=== PATIENT | male | born 1970 | race Caucasian/White ===

== ENCOUNTER 2019-11-01 05:26 | Emergency (ER) | payer OTHER ==
[~2019-11-01] VITALS: Ht 172.7 cm; Wt 79.4 kg
[2019-11-01] MEDS ORDERED: COMBIGAN EYE DR10 ML OPHTHALMIC (05:35)
[2019-11-01] MEDS ORDERED: TRAVATAN Z5 ML OPHTHALMIC (05:36)
[2019-11-01] MEDS ORDERED: HYDROXYZINE HCL25 M2 PO (05:37)
[2019-11-01] MEDS ORDERED: TRAZODONE HCL50 MG PO (05:37)
[2019-11-01] MEDS ORDERED: FLONASE 0.05%50 MCG NASAL (05:38)
[2019-11-01 07:00] VITALS: BP 112/74
--- NOTE | 2019-11-01 07:58 | EKG ---
[facility] [place] [address] ELECTROCARDIOGRAM REPORT Name: KIKO MELÉNDEZ Room #: DEP HARDIK Molina#: [id number] Admission: 11/01/19 Attend Phys: Discharge: 11/01/19 Date of : 70 Report #: [id number] THIS REPORT FOR: //name// [facility] ED Test Date: 2019-11-01 Test Time: 05:32:53 Pat Name: KIKO MELÉNDEZ Department: Room: Gender: Manager Private: NINO : 1970 Requested By: Tre Hernandez Order Number: [id number] MD: Kehinde Lopez Measurements Intervals [place] Rate: 53 P: 42 CT: 155 QRS: 23 QRSD: 84 T: 28 QT: 411 QTc: 386 Interpretive Statements Sinus rhythm Probable left atrial enlargement Early repolarization unchanged from prior EKG Baseline wander in lead(s) V2 Electronically Signed On 11-01-2019 7:58:15 TIP FINISHER by Kehinde Lopez [email or web address] <ELECTRONICALLY SIGNED> By: Kehinde Lopez MD 11/01/19 0758 0532 0532 MD SRINIVAS Hollis
== END 2019-11-01 07:44 | disposition home or self-care (01) ==
LOC: ER 05:26
DX: G47.00 Insomnia, unspecified (principal)

== ENCOUNTER 2019-11-02 17:37 | Emergency (ER) | payer OTHER ==
[~2019-11-02] VITALS: Ht 170.2 cm; Wt 81.7 kg
[~2019-11-02 17:37] MED LIST: COMBIGAN EYE DR10 ML OPHTHALMIC; FLONASE 0.05%50 MCG NASAL; HYDROXYZINE HCL25 M2 PO; TRAVATAN Z5 ML OPHTHALMIC; TRAZODONE HCL50 MG PO
[2019-11-02 21:35] VITALS: BP 132/68
== END 2019-11-02 21:35 | disposition home or self-care (01) ==
LOC: ER 17:37
DX: G47.30 Sleep apnea, unspecified (principal)

== ENCOUNTER 2019-12-14 05:37 | Emergency (ER) | payer OTHER ==
[~2019-12-14] VITALS: Ht 170.2 cm; Wt 79.4 kg
[2019-12-14 06:13] LABS: HEMATOCRIT 35.2 % (42.0-52.0); MCH 23.8 pg (26.0-34.0); MCHC 31.3 g/dL (28.0-37.0); MCV 75.9 fL (80.0-100.0); PLATELET COUNT 169 thou/uL (150-400); RBC 4.64 mil/uL (4.50-6.00); RDW 14.7 % (10.5-14.5); WBC 5.1 thou/uL (4.0-11.0)
[2019-12-14 06:18] LABS: ANION GAP 4 mmol/L (7-16); BUN 10 mg/dL (7-18); CALCIUM 8.3 mg/dL (8.5-10.1); CHLORIDE 100 mmol/L (98-107); CO2 30 mmol/L (21-32); CREATININE 1.4 mg/dL (0.7-1.3); GLUCOSE 113 mg/dL (74-106); POTASSIUM 3.4 mmol/L (3.5-5.1); SODIUM 134 mmol/L (136-145)
[2019-12-14 06:28] LABS: ALBUMIN 3.9 g/dL (3.4-5.0); SGOT 17 U/L (15-37); SGPT 11 U/L (30-65); TOTAL BILIRUBIN 0.6 mg/dL (<0.1-1.0); TOTAL PROTEIN 7.1 g/dL (6.4-8.2); TROPONIN-I <0.06 ng/mL (<0.06)
[2019-12-14 06:50] LABS: AMP/METHAMP Negative (Negative); BARBITURATES Negative (Negative); BENZODIAZEPINES Negative (Negative); COCAINE Negative (Negative); METHADONE Negative (Negative); OPIATES Negative (Negative); PCP Negative (Negative)
--- NOTE | 2019-12-14 08:25 | EKG ---
[facility] [place] [address] ELECTROCARDIOGRAM REPORT Name: KIKO MELÉNDEZ Room #: REG [facility]#: [id number] Admission: 12/14/19 Attend Phys: Discharge: Date of : 70 Report #: [id number] THIS REPORT FOR: cc: Christ Hicks Kent DO Couchonnal, Luis F. MD ~ THIS REPORT FOR: //name// [facility] ED Test Date: 2019-12-14 Test Time: 05:46:24 Pat Name: KIKO MELÉNDEZ Department: Room: Gender: M Fibre Technologist: [facility] : 1970 Requested By: Juan Carlos Mohan Order Number: [id number] MD: Kehinde Lopez Measurements Intervals [place] Rate: 49 P: 46 DC: 153 QRS: 15 QRSD: 89 T: 22 QT: 427 QTc: 386 Interpretive Statements Sinus bradycardia Probable left atrial enlargement Left ventricular hypertrophy Compared to ECG 11/01/2019 05:32:53 Left ventricular hypertrophy now present Sinus rhythm no longer present Early repolarization no longer present Electronically Signed On 12-14-2019 8:24:11 ROPE TWISTING MACHINE OPERATOR by Kehinde Lopez [email or web address] <ELECTRONICALLY SIGNED> By: Kehinde Lopez MD 12/14/19 0824 Kehinde Lopez MD /RIO
[2019-12-14 08:39] LABS: ABSOLUTE NEUTROPHILS 2.4 thou/uL (1.4-8.2); PLATELET ESTIMATE NORMAL
[2019-12-14 09:21] VITALS: BP 121/68
== END 2019-12-14 09:22 | disposition home or self-care (01) ==
LOC: ER 05:37
PROVIDERS: Emergency Medicine
DX: R07.89 Other chest pain (principal); F41.9 Anxiety disorder, unspecified

== ENCOUNTER 2019-12-27 23:47 | Emergency (ER) | payer OTHER ==
[~2019-12-27] VITALS: Ht 170.2 cm; Wt 79.4 kg
[2019-12-27] MEDS ORDERED: DULCOLAX STOOL100 M1 PO (23:55)
[2019-12-28 00:53] LABS: ABSOLUTE NEUTROPHILS 3.3 thou/uL (1.4-8.2); HEMOGLOBIN 10.9 gm/dL (14.0-18.0); PLATELET COUNT 154 thou/uL (150-400); POLYS 73.1 % (36.0-66.0); WBC 4.5 thou/uL (4.0-11.0)
[2019-12-28 00:55] LABS: URINE BILIRUBIN NEGATIVE (Negative); URINE BLOOD TRACE (Negative); URINE CLARITY CLEAR; URINE COLOR YELLOW; URINE GLUCOSE-RANDOM* NEGATIVE (Negative); URINE KETONES NEGATIVE (Negative); URINE LEUKOCYTES-REFLEX TRACE (Negative); URINE NITRITE-REFLEX NEGATIVE (Negative); URINE PROTEIN (DIPSTICK) NEGATIVE (Negative); URINE SPECIFIC GRAVITY <= 1.005 (1.005-1.035); URINE UROBILINOGEN 0.2 E.U./dl (0.2-1.0)
[2019-12-28 00:56] LABS: BASOPHILS 0.8 % (0.0-2.0); CALCIUM 8.4 mg/dL (8.5-10.1); CREATININE 1.3 mg/dL (0.7-1.3); HEMATOCRIT 34.4 % (42.0-52.0); LYMPHOCYTES 16.1 % (24.0-44.0); MCH 24.1 pg (26.0-34.0); MCHC 31.7 g/dL (28.0-37.0); MCV 76.1 fL (80.0-100.0); POTASSIUM 3.3 mmol/L (3.5-5.1); RBC 4.52 mil/uL (4.50-6.00); RDW 14.5 % (10.5-14.5)
[2019-12-28 01:08] LABS: ALBUMIN 3.8 g/dL (3.4-5.0); DIRECT BILIRUBIN 0.1 mg/dL (<0.1-0.2); TOTAL BILIRUBIN 0.5 mg/dL (<0.1-1.0); TOTAL PROTEIN 6.7 g/dL (6.4-8.2)
[2019-12-28 05:40] VITALS: BP 143/87
== END 2019-12-28 05:42 | disposition home or self-care (01) ==
LOC: ER 23:47
PROVIDERS: Emergency Medicine
DX: K59.00 Constipation, unspecified (principal); R11.0 Nausea; E86.0 Dehydration; Z79.899 Other long term (current) drug therapy

== ENCOUNTER 2020-02-20 13:51 | Emergency (ER) | payer OTHER ==
[~2020-02-20] VITALS: Ht 170.2 cm; Wt 74.8 kg
[~2020-02-20 13:51] MED LIST changes: +DULCOLAX STOOL100 M1 PO; +ZOLOFT100 MG PO
[2020-02-20 14:27] LABS: URINE BILIRUBIN NEGATIVE (Negative); URINE BLOOD TRACE (Negative); URINE CLARITY CLEAR; URINE COLOR YELLOW; URINE GLUCOSE-RANDOM* NEGATIVE (Negative); URINE KETONES NEGATIVE (Negative); URINE LEUKOCYTES-REFLEX NEGATIVE (Negative); URINE NITRITE-REFLEX NEGATIVE (Negative); URINE PROTEIN (DIPSTICK) NEGATIVE (Negative); URINE SPECIFIC GRAVITY <= 1.005 (1.005-1.035); URINE UROBILINOGEN 0.2 E.U./dl (0.2-1.0)
[2020-02-20 16:08] LABS: AMP/METHAMP Negative (Negative); BARBITURATES Negative (Negative); BENZODIAZEPINES Negative (Negative); COCAINE Negative (Negative); METHADONE Negative (Negative); OPIATES Negative (Negative); PCP Negative (Negative)
[2020-02-20] MEDS ORDERED: OLANZAPINE ODT5 MG PO ×2 (16:11)
[2020-02-20] MEDS ORDERED: XARELTO15 MG PO ×3 (16:13→16:25)
[2020-02-20] MEDS ORDERED: XARELTO20 MG PO ×2 (16:32)
[2020-02-20 16:33] VITALS: BP 142/94
--- NOTE | 2020-02-21 08:14 | EKG ---
[facility] [place] [address] ELECTROCARDIOGRAM REPORT Name: KIKO MELÉNDEZ Nieves Room #: DEP [facility]#: [id number] Admission: 02/20/20 Attend Phys: Discharge: 02/20/20 Date of : 70 Report #: [id number] THIS REPORT FOR: cc: Christ Hicks Kent DO Lundgren, Craig H. MD [facility] ~ THIS REPORT FOR: //name// [facility] ED Test Date: 2020-02-20 Test Time: 13:53:22 Pat Name: KIKO MELÉNDEZ Department: Room: Gender: M Traffic Sign Supervisor: [facility] : 1970 Requested By: Red Rai Order Number: [id number] MD: Winston Pratt Measurements Intervals [place] Rate: 68 P: 36 [place]: 129 QRS: 17 QRSD: 84 T: 31 QT: 357 QTc: 380 Interpretive Statements Sinus rhythm ST elev, probable normal early repol pattern Compared to ECG 12/14/2019 05:46:24 Sinus bradycardia no longer present Electronically Signed On 02-21-2020 8:12:43 CDT by Winston Pratt [email or web address] <ELECTRONICALLY SIGNED> By: Winston Pratt MD, [facility] 02/21/20 0812 1353 1353 Winston Pratt MD, [facility] /EPI
== END 2020-02-20 16:34 | disposition home or self-care (01) ==
LOC: ER 13:51
PROVIDERS: Emergency Medicine
DX: R00.2 Palpitations (principal); F22 Delusional disorders; G47.00 Insomnia, unspecified; R42 Dizziness and giddiness; R11.0 Nausea; K21.9 Gastro-esophageal reflux disease without esophagitis; Z20.2 Contact with and (suspected) exposure to infections with a predominantly sexual mode of transmission; Z79.899 Other long term (current) drug therapy; Z86.718 Personal history of other venous thrombosis and embolism

== ENCOUNTER 2020-02-21 07:11 | Emergency (ER) | payer OTHER ==
[~2020-02-21] VITALS: Ht 170.2 cm; Wt 74.8 kg
[~2020-02-21 07:11] MED LIST changes: +OLANZAPINE ODT5 MG PO; +XARELTO15 MG PO; +XARELTO20 MG PO
[2020-02-21 08:10] VITALS: BP 115/80
--- NOTE | 2020-02-21 08:22 | EKG ---
[facility] [place] [address] ELECTROCARDIOGRAM REPORT Name: KIKO MELÉNDEZ Nieves Room #: DEP [facility]#: [id number] Admission: 02/21/20 Attend Phys: Discharge: 02/21/20 Date of : 70 Report #: [id number] THIS REPORT FOR: cc: FAM - No family physician/PCP FAM - No family physician/PCP Winston Pratt MD [facility] THIS REPORT FOR: //name// [facility] ED Test Date: 2020-02-21 Test Time: 07:46:28 Pat Name: KIKO MELÉNDEZ Department: Room: Gender: Fisher Trawl Net: [employer]HE[employer] : 1970 Requested By: Sonam Chavez Order Number: [id number] MD: Winston Pratt Measurements Intervals [place] Rate: 75 P: 61 DC: 142 QRS: 20 QRSD: 88 T: 30 QT: 369 QTc: 413 Interpretive Statements Sinus rhythm Early repolarization Compared to ECG 12/14/2019 05:46:24 No significant change was found Electronically Signed On 02-21-2020 8:20:31 CDT by Winston Pratt [email or web address] <ELECTRONICALLY SIGNED> By: Winston Pratt MD, FAC 02/21/20 0820 5 5 Winston Pratt MD, [facility] /EPI
== END 2020-02-21 08:10 | disposition home or self-care (01) ==
LOC: ER 07:11
DX: R00.2 Palpitations (principal); F41.9 Anxiety disorder, unspecified; R42 Dizziness and giddiness; R53.1 Weakness; H93.19 Tinnitus, unspecified ear; Z71.1 Person with feared health complaint in whom no diagnosis is made; Z79.899 Other long term (current) drug therapy

== ENCOUNTER 2020-02-23 20:18 | Emergency (ER) | payer OTHER ==
[~2020-02-23] VITALS: Ht 170.2 cm; Wt 74.8 kg
[2020-02-23] MEDS ORDERED: CLONAZEPAM 0.50.5 M1 PO (20:29)
[2020-02-23 21:33] VITALS: BP 122/75
== END 2020-02-23 21:38 | disposition home or self-care (01) ==
LOC: ER 20:18
DX: H93.12 Tinnitus, left ear (principal); F41.9 Anxiety disorder, unspecified; Z79.899 Other long term (current) drug therapy

== ENCOUNTER 2020-02-26 19:40 | Emergency (ER) | payer OTHER ==
[~2020-02-26] VITALS: Ht 170.2 cm; Wt 74.8 kg
[~2020-02-26 19:40] MED LIST changes: +CLONAZEPAM 0.50.5 M1 PO
[2020-02-26 19:44] VITALS: BP 124/83
[2020-02-26] MEDS ORDERED: TRAZODONE HCL100 MG PO (19:47)
[2020-02-26] MEDS ORDERED: DIPHENHYDRAMINE25 M3 PO (19:49)
--- NOTE | 2020-02-27 09:01 | EKG ---
[facility] [place] [address] ELECTROCARDIOGRAM REPORT Name: KIKO MELÉNDEZ Room #: DEP [facility]#: [id number] Admission: 02/26/20 Attend Phys: Discharge: 02/26/20 Date of : 70 Report #: [id number] THIS REPORT FOR: cc: FAM - Family physician unknown FAM - Family physician unknown Kehinde Lopez MD ~ THIS REPORT FOR: //name// [facility] ED Test Date: 2020-02-26 Test Time: 20:02:34 Pat Name: KIKO MELÉNDEZ Department: Room: Gender: M Physical Education Aide: : 1970 Requested By: Juan Carlos Cedeno Order Number: [id number] MD: Kehinde Lopez Measurements Intervals [place] Rate: 65 P: 45 [place]: 139 QRS: 13 QRSD: 88 T: 28 QT: 369 QTc: 384 Interpretive Statements Sinus rhythm ST elev, probable normal early repol pattern Compared to ECG 02/21/2020 07:46:28 ST (T wave) deviation now present Early repolarization no longer present Electronically Signed On 02-27-2020 8:59:26 CDT by Kehinde Lopez [email or web address] <ELECTRONICALLY SIGNED> By: Kehinde Lopez MD 02/27/20 0859 01 01 Kehinde Lopez MD /EPI
== END 2020-02-26 20:15 | disposition home or self-care (01) ==
LOC: ER 19:40
DX: R42 Dizziness and giddiness (principal); R55 Syncope and collapse; Z79.899 Other long term (current) drug therapy

== ENCOUNTER 2020-02-28 15:17 | Emergency (ER) | payer OTHER ==
[~2020-02-28] VITALS: Ht 170.2 cm; Wt 74.8 kg
[2020-02-28 16:06] VITALS: BP 128/83
== END 2020-02-28 16:16 | disposition home or self-care (01) ==
LOC: ER 15:17
DX: F22 Delusional disorders (principal); F41.9 Anxiety disorder, unspecified; R42 Dizziness and giddiness; H53.9 Unspecified visual disturbance; H93.19 Tinnitus, unspecified ear; Z79.899 Other long term (current) drug therapy

== ENCOUNTER → 2020-02-28 | Emergency (ER) | payer OTHER ==
[~2020-02-28] VITALS: Ht 170.2 cm; Wt 74.8 kg
[~2020-02-28] MED LIST changes: +DIPHENHYDRAMINE25 M3 PO; +TRAZODONE HCL100 MG PO
[2020-02-28 19:11] VITALS: BP 130/76
== END ==
LOC: ER 19:09
DX: H93.13 Tinnitus, bilateral (principal); Z53.21 Procedure and treatment not carried out due to patient leaving prior to being seen by health care provider

== ENCOUNTER 2020-03-20 14:40 | Emergency (ER) | payer OTHER ==
[~2020-03-20] VITALS: Ht 170.2 cm; Wt 77.1 kg
[2020-03-20] MEDS ORDERED: CLONAZEPAM 0.50.5 M1 PO (14:57)
[2020-03-20] MEDS ORDERED: TRAZODONE HCL100 MG PO (14:57)
[2020-03-20 15:59] LABS: AMP/METHAMP Negative (Negative); BARBITURATES Negative (Negative); BENZODIAZEPINES Negative (Negative); COCAINE Negative (Negative); METHADONE Negative (Negative); OPIATES Negative (Negative); PCP Negative (Negative)
--- NOTE | 2020-03-20 16:30 | EKG ---
[facility] [place] [address] ELECTROCARDIOGRAM REPORT Name: KIKO MELÉNDEZ Nieves Room #: REG [facility]#: [id number] Admission: 03/20/20 Attend Phys: Discharge: Date of : [birth year] Report #: [id number] THIS REPORT FOR: cc: GLORY - Trisha family physician/PCP GLORY - Trisha family physician/PCP Winston Pratt MD [facility] THIS REPORT FOR: //name// [facility] ED Test Date: 2020-03-20 Test Time: 15:07:27 Pat Name: KIKO MELÉNDEZ Department: Room: Gender: M Supervisor Abattoir: [employer] : 1970 Requested By: Leslie Gaona Order Number: [id number] MD: Winston Pratt Measurements Intervals [place] Rate: 74 P: 64 [place]: 151 QRS: 18 QRSD: 85 T: 24 QT: 364 QTc: 404 Interpretive Statements Sinus rhythm ST elev, probable normal early repol pattern Compared to ECG 02/26/2020 20:02:34 No significant changes Electronically Signed On 03-20-2020 16:28:34 CDT by Winston Pratt [email or web address] <ELECTRONICALLY SIGNED> By: Winston Pratt MD, [facility] 03/20/20 1628 1507 1507 Winston Pratt MD, [facility] /EPI
[2020-03-20 16:42] LABS: URINE BILIRUBIN NEGATIVE (Negative); URINE BLOOD TRACE (Negative); URINE CLARITY CLEAR; URINE COLOR YELLOW; URINE GLUCOSE-RANDOM* NEGATIVE (Negative); URINE KETONES NEGATIVE (Negative); URINE LEUKOCYTES-REFLEX NEGATIVE (Negative); URINE NITRITE-REFLEX NEGATIVE (Negative); URINE PROTEIN (DIPSTICK) NEGATIVE (Negative); URINE SPECIFIC GRAVITY 1.015 (1.005-1.035); URINE UROBILINOGEN 0.2 E.U./dl (0.2-1.0)
[2020-03-20 17:10] VITALS: BP 140/93
== END 2020-03-20 17:10 | disposition left against medical advice (07) ==
LOC: ER 14:40
PROVIDERS: Nurse Practitioner Family
DX: F22 Delusional disorders (principal); F41.9 Anxiety disorder, unspecified; R00.2 Palpitations; G47.00 Insomnia, unspecified; Z79.899 Other long term (current) drug therapy

== ENCOUNTER 2021-08-14 09:03 | Emergency (ER) | payer OTHER ==
[~2021-08-14] VITALS: Ht 170.2 cm; Wt 77.1 kg
[~2021-08-14 09:03] MED LIST changes: -TRAVATAN Z2.5 ML OPHTHALMIC
[2021-08-14 09:50] VITALS: BP 139/87
--- NOTE | 2021-08-14 15:14 | EKG ---
[address] [place] [address] ELECTROCARDIOGRAM REPORT Name: RIKAKIKO Nieves [facility] [id number] Admission: 08/14/21 Attend Phys: Discharge: 08/14/21 Date of : [birth year] Report #: [id number] [facility] ED Test Date: 2021-08-14 Test Time: 09:09:15 Pat Name: IKKO MELÉNDEZ Department: Room: Gender: M Primer Expeditor And Drier: ARNOLD : 1970 Requested By: Mark Andre Order Number: [id number] MD: Nicholas Graves Measurements Intervals [place] Rate: 58 P: 39 ND: 154 QRS: 4 QRSD: 89 T: 10 QT: 409 QTc: 402 Interpretive Statements Sinus rhythm Probable left atrial enlargement ST elev, probable normal early repol pattern Compared to ECG 03/20/2020 15:07:27 No significant changes Electronically Signed On 08-14-2021 15:14:00 CDT by Nicholas Graves [email or web address] <ELECTRONICALLY SIGNED> By: Nicholas Graves MD, [facility] 08/14/21 1514 0909 8 Nicholas Graves MD, FACC /EPI
[2021-08-15] MEDS ORDERED: TRAVATAN Z2.5 ML OPHTHALMIC (02:10)
[2021-08-15] MEDS ORDERED: HYDROXYZINE HCL25 M2 PO (02:10)
== END 2021-08-14 10:05 | disposition home or self-care (01) ==
LOC: ER 09:03
DX: M79.10 Myalgia, unspecified site (principal); F41.9 Anxiety disorder, unspecified; Z79.899 Other long term (current) drug therapy; Z79.1 Long term (current) use of non-steroidal anti-inflammatories (NSAID)

== ENCOUNTER → 2021-08-14 | Emergency (ER) | payer OTHER ==
[~2021-08-14] MED LIST changes: +TRAVATAN Z2.5 ML OPHTHALMIC
== END ==
LOC: ER 17:56
DX: R07.89 Other chest pain (principal); Z53.21 Procedure and treatment not carried out due to patient leaving prior to being seen by health care provider

== ENCOUNTER 2021-08-15 02:00 | Emergency (ER) | payer OTHER ==
[~2021-08-15] VITALS: Ht 170.2 cm; Wt 77.1 kg
[2021-08-15 02:05] VITALS: BP 136/93
[2021-08-15] MEDS ORDERED: TRAVATAN Z2.5 ML OPHTHALMIC (02:10)
[2021-08-15] MEDS ORDERED: HYDROXYZINE HCL25 M2 PO (02:10)
--- NOTE | 2021-08-15 14:58 | EKG ---
[address] [address] [facility] [place] [address] ELECTROCARDIOGRAM REPORT Name: KIKO MELÉNDEZ [facility] [id number] Admission: 08/15/21 Attend Phys: Discharge: 08/15/21 Date of : 70 Report #: [id number] [facility] ED Test Date: 2021-08-15 Test Time: 02:21:18 Pat Name: KIKO MELÉNDEZ Department: Room: Gender: M Product Control And Logistics Analyst: CURLY : 1970 Requested By: Ivan Steiner Order Number: [id number] MD: Nicholas Graves Measurements Intervals [place] Rate: 75 P: 45 SD: 140 QRS: 8 QRSD: 89 T: 19 QT: 393 QTc: 439 Interpretive Statements Sinus rhythm Probable left atrial enlargement Compared to ECG 08/14/2021 09:09:15 ST (T wave) deviation no longer present Electronically Signed On 08-15-2021 14:58:10 CDT by Nicholas Graves [email or web address] <ELECTRONICALLY SIGNED> By: Nicholas Graves MD, [facility] 08/15/21 1458 0 0221 Nicholas Graves MD, FACC /EPI
== END 2021-08-15 02:48 | disposition left against medical advice (07) ==
LOC: ER 02:00
DX: R51.9 Headache, unspecified (principal); F41.9 Anxiety disorder, unspecified; Z79.891 Long term (current) use of opiate analgesic; Z79.899 Other long term (current) drug therapy

== ENCOUNTER 2021-08-18 12:50 | Emergency (ER) | payer OTHER ==
[~2021-08-18] VITALS: Ht 170.2 cm; Wt 77.1 kg
[2021-08-18 12:50] VITALS: BP 144/94
[~2021-08-18 12:50] MED LIST changes: +TRAVATAN Z2.5 ML OPHTHALMIC
[2021-08-18 13:20] LABS: ABSOLUTE NEUTROPHILS 3.2 thou/uL (1.4-8.2); BASOPHILS 0.9 % (0.0-2.0); HEMOGLOBIN 10.9 gm/dL (14.0-18.0); LYMPHOCYTES 24.4 % (24.0-44.0); MCH 23.7 pg (26.0-34.0); MCHC 31.3 g/dL (28.0-37.0); MCV 75.9 fL (80.0-100.0); MONOCYTES 12.8 % (1.0-8.0); PLATELET COUNT 201 thou/uL (150-400); POLYS 61.9 % (36.0-66.0); RDW 14.6 % (10.5-14.5); WBC 5.1 thou/uL (4.0-11.0)
[2021-08-18 13:26] LABS: CALCIUM 8.3 mg/dL (8.5-10.1); POTASSIUM 3.9 mmol/L (3.5-5.1)
--- NOTE | 2021-08-18 13:34 | EKG ---
[address] [place] [address] ELECTROCARDIOGRAM REPORT Name: RIKAKIKO Nieves Room #: [facility]..#: [id number] Admission: Attend Phys: Discharge: Date of : [birth year] Report #: [id number] [facility] ED Test Date: 2021-08-18 Test Time: 12:54:03 Pat Name: KIKO MELÉNDEZ Department: Room: Gender: Mash Filter Press Operator: alfie : 1970 Requested By: Celio Tijerina Order Number: [id number] MD: Winston Pratt Measurements Intervals [place] Rate: 48 P: 37 [place]: 150 QRS: 12 QRSD: 86 T: 18 QT: 415 QTc: 371 Interpretive Statements Sinus bradycardia Probable left atrial enlargement Compared to ECG 08/15/2021 02:21:18 Heart rate has slowed Electronically Signed On 08-18-2021 13:33:56 CDT by Winston Pratt [email or web address] <ELECTRONICALLY SIGNED> By: Winston Pratt MD, [facility] 08/18/21 1333 1254 1254 Winston Pratt MD, FACC /EPI
[2021-08-18 13:42] LABS: ALBUMIN 3.8 g/dL (3.4-5.0); TOTAL BILIRUBIN 0.6 mg/dL (0.2-1.0); TOTAL PROTEIN 6.7 g/dL (6.4-8.2)
== END 2021-08-18 13:49 | disposition left against medical advice (07) ==
LOC: ER 12:50
PROVIDERS: Emergency Medicine
DX: R07.89 Other chest pain (principal); F41.9 Anxiety disorder, unspecified; Z79.899 Other long term (current) drug therapy

== ENCOUNTER 2021-08-24 15:21 | Emergency (ER) | payer OTHER ==
[~2021-08-24] VITALS: Ht 170.2 cm; Wt 81.7 kg
[2021-08-24 16:06] LABS: ABSOLUTE NEUTROPHILS 3.7 thou/uL (1.4-8.2); BASOPHILS 0.6 % (0.0-2.0); HEMATOCRIT 35.8 % (42.0-52.0); HEMOGLOBIN 11.3 gm/dL (14.0-18.0); LYMPHOCYTES 20.6 % (24.0-44.0); MCHC 31.6 g/dL (28.0-37.0); MCV 76.2 fL (80.0-100.0); MONOCYTES 10.9 % (1.0-8.0); PLATELET COUNT 188 thou/uL (150-400); POLYS 67.9 % (36.0-66.0); RDW 14.7 % (10.5-14.5); WBC 5.5 thou/uL (4.0-11.0)
[2021-08-24 16:15] LABS: CREATININE 1.1 mg/dL (0.7-1.3); POTASSIUM 4.1 mmol/L (3.5-5.1)
[2021-08-24 16:30] VITALS: BP 109/76
--- NOTE | 2021-08-26 07:26 | EKG ---
[address] [place] [address] ELECTROCARDIOGRAM REPORT Name: RIKAKIKO Nieves Room #: DEP Jesse#: [id number] Admission: 08/24/21 Attend Phys: Discharge: 08/24/21 Date of : [birth year] Report #: [id number] [facility] ED Test Date: 2021-08-24 Test Time: 15:27:27 Pat Name: KIKO MELÉNDEZ Department: Room: Gender: M Vertical Roll Operator: missael : 1970 Requested By: Ivan Steiner Order Number: [id number] MD: Nicholas Graves Measurements Intervals [place] Rate: 63 P: 48 CA: 154 QRS: 5 QRSD: 81 T: 8 QT: 379 QTc: 388 Interpretive Statements Sinus rhythm Left atrial enlargement ST elev, probable normal early repol pattern Compared to ECG 08/18/2021 12:54:03 ST (T wave) deviation now present Sinus bradycardia no longer present Electronically Signed On 08-26-2021 7:26:36 CDT by Nicholas Graves [email or web address] <ELECTRONICALLY SIGNED> By: Nicholas Graves MD, [facility] 08/26/21 0726 D: 10/1526 26 Nicholas Graves MD, FACC /EPI
== END 2021-08-24 17:39 | disposition home or self-care (01) ==
LOC: ER 15:21
PROVIDERS: Student in an Organized Health Care Education/Training Program
DX: R07.89 Other chest pain (principal); F41.9 Anxiety disorder, unspecified; Z79.899 Other long term (current) drug therapy

== ENCOUNTER → 2021-08-26 | Emergency (ER) | payer OTHER ==
[~2021-08-26] VITALS: Ht 170.2 cm; Wt 77.1 kg
[2021-08-26 10:36] VITALS: BP 129/79
--- NOTE | 2021-08-26 15:48 | EKG ---
[address] [address] ELECTROCARDIOGRAM REPORT Name: RIKAKIKO Nieves [id number] Admission: 08/26/21 Attend Phys: Discharge: Date of : [birth year] Report #: [id number] [facility] ED Test Date: 2021-08-26 Test Time: 10:38:54 Pat Name: KIKO MELÉNDEZ Department: Room: Gender: Thread Grinder Tool: : 1970 Requested By: Ivan Steiner Order Number: [id number] MD: Nicholas Graves Measurements Intervals [place] Rate: 59 P: 36 [place]: 159 QRS: 7 QRSD: 84 T: 13 QT: 382 QTc: 379 Interpretive Statements Sinus rhythm Compared to ECG 08/24/2021 15:27:27 Atrial abnormality no longer present Electronically Signed On 08-26-2021 15:48:11 CDT by Nicholas Graves [email or web address] <ELECTRONICALLY SIGNED> By: Nicholas Graves MD, [facility] 08/26/21 1548 1038 1038 Nicholas Graves MD, FACC /EPI
== END ==
LOC: ER 10:30
DX: R10.13 Epigastric pain (principal); R07.89 Other chest pain; F41.9 Anxiety disorder, unspecified; Z53.21 Procedure and treatment not carried out due to patient leaving prior to being seen by health care provider